=== PATIENT | female | born 1970 | race Caucasian/White ===

== ENCOUNTER 2017-08-31 07:12 | Emergency (ER) | payer MEDICAID ==
[~2017-08-31] VITALS: Ht 162.6 cm; Wt 74.0 kg
[2017-08-31 07:14] VITALS: BP 152/95
[2017-08-31] MEDS ORDERED: ESCI5TAB7 PO (07:45)
== END 2017-08-31 09:21 | disposition home or self-care (01) ==
LOC: ED 08:04
DX: S40.011A Contusion of right shoulder, initial encounter (principal); S40.021A Contusion of right upper arm, initial encounter; I10 Essential (primary) hypertension; E11.9 Type 2 diabetes mellitus without complications; W11.XXXA Fall on and from ladder, initial encounter; Y93.89 Activity, other specified; Y92.098 Other place in other non-institutional residence as the place of occurrence of the external cause; Y99.8 Other external cause status
CPT/HCPCS: 99284

== ENCOUNTER 2017-10-04 09:15 | Emergency (ER) | payer MEDICAID ==
[~2017-10-04] VITALS: Ht 162.6 cm; Wt 74.8 kg
[~2017-10-04 09:15] MED LIST: ESCI5TAB7 PO
[2017-10-04 09:18] VITALS: BP 162/104
[2017-10-04] MEDS ORDERED: BACITRACIN ZINC OINT 500U/GM, 0.9 GM ONE (10:15)
== END 2017-10-04 10:30 | disposition home or self-care (01) ==
LOC: ED 10:15
DX: L03.115 Cellulitis of right lower limb (principal); I10 Essential (primary) hypertension; E11.9 Type 2 diabetes mellitus without complications
CPT/HCPCS: 99283

== ENCOUNTER 2017-10-24 19:31 | Emergency (ER) | payer MEDICAID ==
[~2017-10-24] VITALS: Ht 160 cm; Wt 70.0 kg
[2017-10-24 20:41] LABS: HCG UR SG 1.039 (1.003-1.030); MICROSCOPIC NOT IND
[2017-10-24 20:54] LABS: CULTURE INDICATED? NO
[2017-10-24] MEDS ORDERED: SODIUM CHLORIDE 0.9% 1,000ML IVBOLUS ONE (21:00)
[2017-10-24 21:07] LABS: BASOPHILS % (AUTO) 1 % (0-1); EOSINOPHILS # (AUTO) 0.31 x10^3/uL (0-0.4); EOSINOPHILS % (AUTO) 2 % (1-7); LYMPHOCYTES # (AUTO) 4.74 x10^3/uL (1-3.4); LYMPHOCYTES % (AUTO) 30 % (22-44); MD NO; MEAN CORPUSCULAR HEMOGLOBIN 30.3 pg (27.0-34.8); MEAN CORPUSCULAR HGB CONC 33.8 g/dL (32.4-35.8); MEAN CORPUSCULAR VOLUME 89.5 fL (80-100); MEAN PLATELET VOLUME 9.2 fL (7.4-10.4); MONOCYTES # (AUTO) 0.75 x10^3/uL (0.2-0.8); MONOCYTES % (AUTO) 5 % (2-9); NEUTROPHILS # (AUTO) 10.17 x10^3/uL (1.8-6.8); NEUTROPHILS % (AUTO) 63 % (42-75); PLATELET COUNT 305 x10^3/uL (130-400); RED BLOOD COUNT 5.07 x10^6/uL (3.82-5.3); RED CELL DISTRIBUTION WIDTH 13.9 % (9.6-15.2)
[2017-10-24 21:09] LABS: CLUE CELLS NONE SEEN (NONE SEEN)
[2017-10-24 21:10] LABS: WET PREP WBCS FEW (FEW)
[2017-10-24 21:15] LABS: ANION GAP 8 mmol/L (5-15); CALCIUM 8.9 mg/dL (8.5-10.1); CHLORIDE 103 mmol/L (98-107); CREATININE 0.69 mg/dL (0.55-1.02)
[2017-10-24 21:34] LABS: ACETONE, SERUM Negative (Negative)
[2017-10-24] MEDS ORDERED: AZITHROMYCIN 500 MG TABLET ONE (21:47)
[2017-10-24] MEDS ORDERED: CEFTRIAXONE PMX 1GM/50ML 50 ML ONE (21:47)
[2017-10-24] MEDS ORDERED: CEFTRIAXONE PMX 1GM/50ML 50 ML IV ONE (22:00)
[2017-10-24] MEDS ORDERED: AZITHROMYCIN 500 MG TABLET PO SCH (22:00)
[2017-10-24 22:07] VITALS: BP 138/78
== END 2017-10-24 22:14 | disposition home or self-care (01) ==
LOC: ED 20:47
DX: N76.1 Subacute and chronic vaginitis (principal); E11.65 Type 2 diabetes mellitus with hyperglycemia; F17.200 Nicotine dependence, unspecified, uncomplicated
CPT/HCPCS: 36415; 80048; 81003; 81025; 82010; 82800; 82962; 85025; 87210; 87491; 87591; 87808; 96361; 96365; 99284; J0696; J7030

== ENCOUNTER 2017-12-29 20:15 | Observation (INO) | payer MEDICAID ==
[~2017-12-29] VITALS: Ht 157.5 cm; Wt 75.0 kg
[2017-12-29 20:56] LABS: HCG UR SG 1.008 (1.003-1.030)
[2017-12-29 20:59] LABS: BASOPHILS % (AUTO) 1 % (0-1); EOSINOPHILS % (AUTO) 1 % (1-7); LYMPHOCYTES % (AUTO) 30 % (22-44); MD NO; MEAN CORPUSCULAR HEMOGLOBIN 30.2 pg (27.0-34.8); MEAN CORPUSCULAR HGB CONC 33.9 g/dL (32.4-35.8); MEAN CORPUSCULAR VOLUME 89.1 fL (80-100); MEAN PLATELET VOLUME 9.1 fL (7.4-10.4); MONOCYTES # (AUTO) 0.74 x10^3/uL (0.2-0.8); MONOCYTES % (AUTO) 5 % (2-9); NEUTROPHILS # (AUTO) 9.62 x10^3/uL (1.8-6.8); NEUTROPHILS % (AUTO) 63 % (42-75); PLATELET COUNT 311 x10^3/uL (130-400); RED BLOOD COUNT 4.66 x10^6/uL (3.82-5.3); RED CELL DISTRIBUTION WIDTH 14.7 % (9.6-15.2)
[2017-12-29] MEDS ORDERED: INSU100V8 SQ (21:05)
[2017-12-29 21:07] LABS: ALANINE AMINOTRANSFERASE 24 U/L (12-78); ANION GAP 9 mmol/L (5-15); CALCIUM 8.9 mg/dL (8.5-10.1); CHLORIDE 106 mmol/L (98-107); CREATININE 0.74 mg/dL (0.55-1.02)
[2017-12-29 21:09] LABS: ACETAMINOPHEN < 2 mcg/mL (10-30); ALKALINE PHOSPHATASE 93 U/L (45-117); BILIRUBIN,TOTAL 0.5 mg/dL (0.2-1.0); TOTAL PROTEIN 8.4 g/dL (6.4-8.2)
[2017-12-29 21:19] LABS: AMPHETAMINE SCREEN, URINE Negative (Negative); BARBITURATE SCREEN, URINE Negative (Negative); BENZODIAZEPINE SCREEN, URINE Negative (Negative); CANNABINOID SCREEN, URINE Positive (Negative); COCAINE SCREEN, URINE Negative (Negative); METHADONE SCREEN, URINE Negative (Negative); OPIATE SCREEN, URINE Negative (Negative)
[2017-12-29 22:24] LABS: MICROSCOPIC NOT IND
[2017-12-29 22:26] LABS: CULTURE INDICATED? NO
[2017-12-29] MEDS ORDERED: ONDANSETRON ODT 4 MG PO PRN (23:30)
[2017-12-29] MEDS: INSULIN GLARGINE 100 UNITS/ML, PEN SQ-INSULIN SCH (23:30)
[2017-12-30] MEDS ORDERED: ACETAMINOPHEN 325 MG TABLET ONE ×3 (04:35→07:59)
[2017-12-30] MEDS: ACETAMINOPHEN 325 MG TABLET PO PRN ×2 (04:41→08:08)
[2017-12-30 04:43] LABS: MEAN CORPUSCULAR HEMOGLOBIN 29.8 pg (27.0-34.8); MEAN CORPUSCULAR HGB CONC 33.1 g/dL (32.4-35.8); MEAN CORPUSCULAR VOLUME 90.2 fL (80-100); MEAN PLATELET VOLUME 8.8 fL (7.4-10.4); PLATELET COUNT 310 x10^3/uL (130-400); RED BLOOD COUNT 4.52 x10^6/uL (3.82-5.3)
[2017-12-30 05:38] LABS: BASOPHILS # (AUTO) 0.11 x10^3/uL (0-0.1); BASOPHILS % (AUTO) 1 % (0-1); EOSINOPHILS # (AUTO) 0.24 x10^3/uL (0-0.4); EOSINOPHILS % (AUTO) 2 % (1-7); LYMPHOCYTES # (AUTO) 5.89 x10^3/uL (1-3.4); LYMPHOCYTES % (AUTO) 38 % (22-44); MD SCAN; MONOCYTES # (AUTO) 0.74 x10^3/uL (0.2-0.8); MONOCYTES % (AUTO) 5 % (2-9); NEUTROPHILS # (AUTO) 8.63 x10^3/uL (1.8-6.8); NEUTROPHILS % (AUTO) 55 % (42-75)
[2017-12-30] MEDS ORDERED: INSULIN REGULAR 100 UNITS/ML, 3ML VIAL ONE ×3 (08:00→20:23)
[2017-12-30] MEDS: INSULIN REGULAR 100 UNITS/ML, 3ML VIAL SQ-INSULIN SCH ×4 (08:07→21:00)
[2017-12-30] MEDS ORDERED: TEMPLATE NON-FORMULARY MED. (Escitalopram Oxalate** (Lexapro**) 5 MG) PO SCH (09:00)
[2017-12-30] MEDS: DULOXETINE 20 MG CAPSULE.DR PO SCH (10:33)
[2017-12-30] MEDS ORDERED: DULO20CA45 PO (12:46)
[2017-12-30] MEDS ORDERED: LORazepam 1MG TABLET ONE ×2 (16:13→20:23)
[2017-12-30] MEDS: LORazepam 1MG TABLET PO PRN (16:14)
[2017-12-30] MEDS: INSULIN GLARGINE 100 UNITS/ML, PEN SQ-INSULIN SCH (21:30)
[2017-12-31] MEDS ORDERED: LORazepam 1MG TABLET ONE ×2 (03:00→11:50)
[2017-12-31] MEDS: LORazepam 1MG TABLET PO PRN ×3 (03:01→21:53)
[2017-12-31] MEDS: INSULIN REGULAR 100 UNITS/ML, 3ML VIAL SQ-INSULIN SCH ×4 (07:00→20:30)
[2017-12-31] MEDS ORDERED: INSULIN REGULAR 100 UNITS/ML, 3ML VIAL ONE ×2 (08:13→11:22)
[2017-12-31] MEDS: DULOXETINE 20 MG CAPSULE.DR PO SCH (08:14)
[2017-12-31] MEDS ORDERED: GABA300C10 PO (12:09)
[2017-12-31] MEDS ORDERED: METF10003 PO (12:09)
[2017-12-31] MEDS ORDERED: AMLO5TAB2 PO (12:10)
[2017-12-31] MEDS ORDERED: INSU100V8 SQ (12:11)
[2017-12-31 13:55] LABS: BASOPHILS # (AUTO) 0.03 x10^3/uL (0-0.1); BASOPHILS % (AUTO) 0 % (0-1); EOSINOPHILS % (AUTO) 2 % (1-7); LYMPHOCYTES # (AUTO) 3.85 x10^3/uL (1-3.4); LYMPHOCYTES % (AUTO) 27 % (22-44); MD NO; MEAN CORPUSCULAR HEMOGLOBIN 29.7 pg (27.0-34.8); MEAN CORPUSCULAR HGB CONC 33.2 g/dL (32.4-35.8); MEAN CORPUSCULAR VOLUME 89.6 fL (80-100); MONOCYTES # (AUTO) 0.69 x10^3/uL (0.2-0.8); MONOCYTES % (AUTO) 5 % (2-9); NEUTROPHILS # (AUTO) 9.68 x10^3/uL (1.8-6.8); NEUTROPHILS % (AUTO) 67 % (42-75); PLATELET COUNT 315 x10^3/uL (130-400); RED BLOOD COUNT 4.58 x10^6/uL (3.82-5.3); RED CELL DISTRIBUTION WIDTH 14.6 % (9.6-15.2)
[2017-12-31 15:12] VITALS: BP 142/98
[2017-12-31] MEDS: GABAPENTIN 300 MG CAPSULE PO SCH ×2 (16:00→20:30)
[2017-12-31 16:12] VITALS: BP 142/98
[2017-12-31 19:19] VITALS: BP 138/87
[2017-12-31] MEDS: INSULIN GLARGINE 100 UNITS/ML, PEN SQ-INSULIN SCH (20:30)
[2017-12-31] MEDS: metFORMIN 500 MG TABLET PO SCH (20:30)
[2018-01-01] MEDS: INSULIN REGULAR 100 UNITS/ML, 3ML VIAL SQ-INSULIN SCH ×4 (07:34→20:13)
[2018-01-01 07:48] VITALS: BP 135/94
[2018-01-01] MEDS: GABAPENTIN 300 MG CAPSULE PO SCH ×3 (08:43→20:19)
[2018-01-01] MEDS: DULOXETINE 20 MG CAPSULE.DR PO SCH (08:44)
[2018-01-01] MEDS: metFORMIN 500 MG TABLET PO SCH ×2 (08:44→20:19)
[2018-01-01] MEDS: AMLODIPINE 5 MG TABLET PO SCH (08:44)
[2018-01-01] MEDS ORDERED: DULOXETINE 20 MG CAPSULE.DR PO SCH (09:00)
[2018-01-01] MEDS: ACETAMINOPHEN 325 MG TABLET PO PRN (13:52)
[2018-01-01 19:55] VITALS: BP 139/90
[2018-01-01] MEDS: INSULIN GLARGINE 100 UNITS/ML, PEN SQ-INSULIN SCH (20:14)
[2018-01-01] MEDS: LORazepam 1MG TABLET PO PRN (20:42)
[2018-01-01] MEDS ORDERED: DIPHENHYDRAMINE 50 MG CAPSULE ONE (21:10)
[2018-01-01] MEDS ORDERED: DIPHENHYDRAMINE 50 MG CAPSULE PO PRN (21:30)
[2018-01-02] MEDS: INSULIN REGULAR 100 UNITS/ML, 3ML VIAL SQ-INSULIN SCH ×2 (07:40→11:00)
[2018-01-02 08:28] VITALS: BP 123/78
[2018-01-02] MEDS: DULOXETINE 20 MG CAPSULE.DR PO SCH (09:02)
[2018-01-02] MEDS: GABAPENTIN 300 MG CAPSULE PO SCH (09:02)
[2018-01-02] MEDS: AMLODIPINE 5 MG TABLET PO SCH (09:03)
[2018-01-02] MEDS: metFORMIN 500 MG TABLET PO SCH (09:03)
[2018-01-02] MEDS: ACETAMINOPHEN 325 MG TABLET PO PRN (14:54)
[2018-01-02] MEDS: LORazepam 1MG TABLET PO PRN (14:54)
== END 2018-01-02 15:41 | disposition home or self-care (01) ==
LOC: ED 21:05 → EDIP 22:29 → 2N 12-31 14:45
PROVIDERS: ADMIT Hospitalist; ATTEND Hospitalist
DX: R45.851 Suicidal ideations (principal); I11.9 Hypertensive heart disease without heart failure; F32.9 Major depressive disorder, single episode, unspecified; F41.9 Anxiety disorder, unspecified; D72.829 Elevated white blood cell count, unspecified; E11.65 Type 2 diabetes mellitus with hyperglycemia; F12.90 Cannabis use, unspecified, uncomplicated; F17.200 Nicotine dependence, unspecified, uncomplicated; Z59.0 Homelessness
CPT/HCPCS: 36415; 71045; 80053; 80307; 80329; 81003; 81025; 82962; 85025; 96372; 99285; G0378; J1815; G0480

== ENCOUNTER 2019-08-14 08:11 | Emergency (ER) | payer MEDICAID ==
[~2019-08-14] VITALS: Ht 162.6 cm; Wt 72.2 kg
[~2019-08-14 08:11] MED LIST changes: +AMLO-150 PO; +DULO20CA45 PO; +GABA300C10 PO; +INSU100V8 SQ; +METF10007 PO
[2019-08-14 08:22] VITALS: BP 148/91
--- NOTE | 2019-08-14 09:11 | NUR ---
Break RN: Pt returned from Xray in NAD, awaiting Xray read & strep swab result. Pt given blanket for comfort, no other needs at this time.
[2019-08-14] MEDS ORDERED: ACETAMINOPHEN 325 MG TABLET PO ONE (09:30)
[2019-08-14] MEDS ORDERED: ACETAMINOPHEN 325 MG TABLET ONE (09:30)
== END 2019-08-14 10:11 | disposition home or self-care (01) ==
LOC: ED 10:00
DX: J02.8 Acute pharyngitis due to other specified organisms (principal); B97.89 Other viral agents as the cause of diseases classified elsewhere; I10 Essential (primary) hypertension; E11.65 Type 2 diabetes mellitus with hyperglycemia
CPT/HCPCS: 71046; 87081; 87880; 99284

== ENCOUNTER 2019-11-04 12:31 | Emergency (ER) | payer MEDICAID ==
[~2019-11-04] VITALS: Ht 160 cm; Wt 86.4 kg
[2019-11-04] MEDS ORDERED: SODIUM CHLORIDE FLUSH 10ML SYR IVF ONE (13:00)
[2019-11-04] MEDS ORDERED: SODIUM CHLORIDE 0.9% 1,000ML IVBOLUS ONE (13:00)
[2019-11-04 13:10] LABS: BASOPHILS # (AUTO) 0.07 x10^3/uL (0-0.1); BASOPHILS % (AUTO) 1 % (0-1); EOSINOPHILS # (AUTO) 0.15 x10^3/uL (0-0.4); EOSINOPHILS % (AUTO) 1 % (1-7); LYMPHOCYTES # (AUTO) 4.28 x10^3/uL (1-3.4); LYMPHOCYTES % (AUTO) 29 % (22-44); MD NO; MEAN CORPUSCULAR HEMOGLOBIN 29.9 pg (27.0-34.8); MEAN CORPUSCULAR HGB CONC 33.2 g/dL (32.4-35.8); MEAN PLATELET VOLUME 8.9 fL (7.4-10.4); MONOCYTES # (AUTO) 0.64 x10^3/uL (0.2-0.8); MONOCYTES % (AUTO) 4 % (2-9); NEUTROPHILS % (AUTO) 66 % (42-75); PLATELET COUNT 334 x10^3/uL (130-400); RED BLOOD COUNT 4.95 x10^6/uL (3.82-5.3); RED CELL DISTRIBUTION WIDTH 14.6 % (9.6-15.2)
[2019-11-04 13:22] LABS: ALBUMIN 3.8 g/dL (3.4-5.0); ANION GAP 11 mmol/L (5-15); CALCIUM 8.8 mg/dL (8.5-10.1); CHLORIDE 107 mmol/L (98-107); CREATININE 0.87 mg/dL (0.55-1.02)
--- NOTE | 2019-11-04 13:49 | NUR ---
RAJEEV SCHULTE EVALUATING PT. SITTER OUTSIDE ROOM.
--- NOTE | 2019-11-04 15:22 | NUR ---
UOB TO BATHROOM WITHOUT ASSISTANCE. UPON RETURN TO ROOM IV ESTABLISHED WITH FLUIDS INFUSING
--- NOTE | 2019-11-04 16:32 | NUR ---
LYING IN BED QUIETLY, NO DISTRESS
--- NOTE | 2019-11-04 17:39 | NUR ---
RESTING QUIETLY. REMAINS IN VIEW OF SITTER.
--- NOTE | 2019-11-04 17:44 | NUR ---
RESTING WITH EYES CLOSED, NO DISTRESS
--- NOTE | 2019-11-04 18:53 | NUR ---
PACKET FAXED TO [facility] AND [facility]
--- NOTE | 2019-11-04 18:56 | NUR ---
REPORT TO ELVIE JEWELL
--- NOTE | 2019-11-04 19:00 | NUR ---
REPORT RECEIVED FROM FANTA CASAS. THIS RN TO ASSUME CARE OF PT AT THIS TIME
--- NOTE | 2019-11-04 19:10 | NUR ---
PATIENT MOVED TO 3 TO BE A SECURED ROOM. SITTER AT DOOR
--- NOTE | 2019-11-04 19:45 | NUR ---
CALL PLACED TO GET HOSPITAL BED
--- NOTE | 2019-11-04 20:08 | NUR ---
PATIENT MOVED TO HOSPITAL BED. ROOM SECURED, SITTER AT DOOR
--- NOTE | 2019-11-04 21:00 | NUR ---
PATIENT SLEEPING, RESPIRATIONS EVEN AND UNLABORED. SITTER AT DOOR, ROOM SECURE
--- NOTE | 2019-11-04 22:06 | NUR ---
PATIENT SLEEPING, RESPIRATIONS EVEN AND UNLABORED. SITTER AT DOOR, ROOM SECURE
--- NOTE | 2019-11-04 22:58 | NUR ---
PATIENT SLEEPING, RESPIRATIONS EVEN AND UNLABORED. SITTER AT DOOR, ROOM SECURE
--- NOTE | 2019-11-05 | NUR ---
PATIENT SLEEPING, RESPIRATIONS EVEN AND UNLABORED. SITTER AT DOOR, ROOM SECURE
--- NOTE | 2019-11-05 00:59 | NUR ---
Report from Ladonna arredondo. Pt sleeping. Even and unlabored breathing observed. sitter in view of pt
--- NOTE | 2019-11-05 01:21 | NUR ---
REPORT GIVEN TO FANTA FUENTES. PLAN OF CARE DISCUSSED. SITTER AT DOOR. ROOM SECURE
--- NOTE | 2019-11-05 02:15 | NUR ---
UA COLLECTED AND SENT
[2019-11-05 02:36] LABS: AMPHETAMINE SCREEN, URINE Negative (Negative); BARBITURATE SCREEN, URINE Negative (Negative); BENZODIAZEPINE SCREEN, URINE Negative (Negative); CANNABINOID SCREEN, URINE Positive (Negative); COCAINE SCREEN, URINE Negative (Negative); METHADONE SCREEN, URINE Negative (Negative); OPIATE SCREEN, URINE Negative (Negative)
--- NOTE | 2019-11-05 03:31 | NUR ---
PT SLEEPING IN NAD. EVEN RISE AND FALL OF CHEST OBSERVED. SITTER IN VIEW OF PT.
--- NOTE | 2019-11-05 04:45 | NUR ---
PT SLEEPING IN NAD. EVEN RISE AND FALL OF CHEST OBSERVED. SITTER IN VIEW OF PT.
--- NOTE | 2019-11-05 05:27 | NUR ---
PT SLEEPING IN NAD. EVEN RISE AND FALL OF CHEST OBSERVED. SITTER IN VIEW OF PT.
--- NOTE | 2019-11-05 08:30 | NUR ---
MEAL TRAY GIVEN, NO NEEDS A THIS TIME.
--- NOTE | 2019-11-05 09:30 | NUR ---
PT RESTING. SITTER PRESENT.
--- NOTE | 2019-11-05 10:30 | NUR ---
PT RESTING, NO NEEDS AT THIS TIME. SITTER PRESENT
--- NOTE | 2019-11-05 11:29 | NUR ---
GIVEN WATER. PT RESTING, NO NEEDS AT THIS TIME
--- NOTE | 2019-11-05 12:12 | NUR ---
MEAL TRAY ORDERED.
[2019-11-05] MEDS ORDERED: NICOTINE 21 MG/24 HR PATCH.TD24 ONE (13:22)
[2019-11-05] MEDS: BUPROPION SR 100 MG TABLET PO SCH (13:30)
[2019-11-05] MEDS: NICOTINE 21 MG/24 HR PATCH.TD24 TD SCH (13:30)
--- NOTE | 2019-11-05 13:30 | NUR ---
PT RESTING. COMPLETED MEAL TRAY. SITTER PRESENT.
--- NOTE | 2019-11-05 14:10 | NUR ---
PT SHOWERING, NEW LINENS PROVIDED. EDY ISAACS
--- NOTE | 2019-11-05 15:24 | NUR ---
PT RESTING, WATCHING TV. SITTER PRESENT
--- NOTE | 2019-11-05 16:30 | NUR ---
PT RESTING, NO NEEDS AT THIS TIME
--- NOTE | 2019-11-05 17:30 | NUR ---
PT RESTING NO NEEDS AT THIS TIME. SITTER PRESENT
--- NOTE | 2019-11-05 18:22 | NUR ---
MEAL TRAY GIVEN, SITTER PRESENT
--- NOTE | 2019-11-05 19:16 | NUR ---
PT RESTING ON HOSITAL BED. DINNER MEAL PROVIDED. WATER PROVIDED. SITTER IN HALLWAY WITHIN LINE OF SIGHT. ROOM SECURED. ALL SAFETY MEASURES IN PLACE. PT REPORTS THOUGHTS OF SUICIDE, BUT DENIES CURRENT INTENTION TO ACT ON THEM. PT REPORTS "I WAS DRUNK SO I WAS SUICIDAL" "BRONWYN TRIED TO KILL MYSELF BEFORE BY CUTTING". PT DENIES ANY OTHER NEEDS AT THIS TIME.
--- NOTE | 2019-11-05 21:44 | NUR ---
PT RESTING ON HOSPITAL BED WATCHING TV. PT DENIES FURTHER NEEDS AT THIS TIME. ROOM SECURED, SITTER IN HALLWAY WITHIN LINE OF SIGHT.
[2019-11-05] MEDS: TRAZODONE 100MG TABLET PO SCH (22:10)
[2019-11-05] MEDS ORDERED: TRAZODONE 100MG TABLET ONE (22:17)
--- NOTE | 2019-11-05 22:41 | NUR ---
PT RESTING ON HOSPITAL BED WATCHING TELEVISION. ROOM SECURED, SITTER IN HALLWAY WITHIN LINE OF SIGHT.
--- NOTE | 2019-11-06 02:15 | NUR ---
PT RESTING ON HOSPITAL BED WITH EYES CLOSED, RESPIRATIONS EVEN AND NONLABORED. ROOM SECURED, SITTER IN HALLWAY WITHIN LINE OF SIGHT.
--- NOTE | 2019-11-06 04:32 | NUR ---
PT RESTING ON HOSPITAL BED WITH EYES CLOSED, RESPIRATIONS EVEN AND NONLABORED. ROOM SECURED, SITTER IN HALLWAY WITHIN LINE OF SIGHT.
--- NOTE | 2019-11-06 04:50 | NUR ---
REPORT TO JOSHUA Perez RN
--- NOTE | 2019-11-06 05:27 | NUR ---
PT RESTING ON BED AJITHN. SITTER IN [facility]
--- NOTE | 2019-11-06 06:49 | NUR ---
REPORT FROM FANTA LEWIS. ASSUMING CARE AT THIS TIME.
[2019-11-06] MEDS ORDERED: NICOTINE 21 MG/24 HR PATCH.TD24 ONE (07:24)
[2019-11-06] MEDS: NICOTINE 21 MG/24 HR PATCH.TD24 TD SCH (07:29)
--- NOTE | 2019-11-06 07:31 | NUR ---
OLD NICOTINE PATCH REMOVED AND NEW PATCH APPLIED, REQUEST SENT TO PHARMACY FOR WELLBUTRIN. MED REC COMPLETED.
--- NOTE | 2019-11-06 07:32 | NUR ---
PT RESTING IN SECURED ROOM, AWAKE AND CALM, SITTER AT DOORWAY. VS, PHYSICAL EXAM AND SUICIDE REASSESSMENT COMPLETED AND 3Ps ADDRESSED. BREAKFAST TRAY ORDERED. NO NEEDS EXPRESSED AT THIS TIME. PT MEDICATED PER SEP. REQUEST SENT TO PHARM FOR OTHER MEDICATIONS. NO IV IN PLACE AT THIS TIME.
--- NOTE | 2019-11-06 08:10 | NUR ---
PT RESTING IN SECURED ROOM WITH EYES CLOSED. BREAKFAST TRAY DELIVERED. NO NEEDS EXPRESSED. SITTER REMAINS AT DOORWAY. STILL AWAITING MEDICATION FROM PHARMACY.
[2019-11-06] MEDS: BUPROPION SR 100 MG TABLET PO SCH ×2 (08:44→12:24)
--- NOTE | 2019-11-06 08:45 | NUR ---
LATE ENTRY: MEDICATION FROM PHARMACY AT THIS TIME. PT MEDICATED PER SEP.
--- NOTE | 2019-11-06 09:22 | NUR ---
PT RESTING IN SECURED ROOM WITH EYES CLOSED. NO NEEDS EXPRESSED. SITTER REMAINS AT DOORWAY.
--- NOTE | 2019-11-06 11:45 | NUR ---
PT RESTING IN SECURED ROOM WITH EYES CLOSED. NO NEEDS EXPRESSED. LUNCH TRAY ORDERED. SITTER REMAINS AT DOORWAY. YELLOW SLIP SENT TO PHARMACY TO REQUEST MEDICATIONS.
--- NOTE | 2019-11-06 12:23 | NUR ---
PT RESTING IN SECURED ROOM WATCHING TV. NO NEEDS EXPRESSED. LUNCH TRAY PROVIDED. SITTER REMAINS AT DOORWAY.
--- NOTE | 2019-11-06 12:25 | NUR ---
MEDICATION RECEIVED FROM PHARMACY. PT MEDICATED PER SEP. PER PALLIATIVE NURSE, MED ORDER IS CORRECT. BID AT BREAKFAST AND LUNCH TIME.
--- NOTE | 2019-11-06 12:56 | NUR ---
RECEIVED REPORT FROM ISA JEWELL. PT IN BED WATCHING TV. PT BEING OBSERVED BY SITTER. PT ATE 50% OF LUNCH.
--- NOTE | 2019-11-06 13:57 | NUR ---
THROUGHTPUT: RECEIVED A CALL FROM [facility], NEED HCG. FAXED HCG RESULTS NEGATIVE TO [facility] RECEIVED FAX CONFIRMATION
--- NOTE | 2019-11-06 15:29 | NUR ---
PT RESTING IN BED IN NAD. VISBLE RISE AND FALL OF CHEST OBSERVED. PT BEING OBSERVED BY SITTER.
--- NOTE | 2019-11-06 15:55 | NUR ---
pt has hx of dm and not on meds for one year. initial bs was 330 on arrival. Poc glucose revealed bs of 153. dr. law jamil.
--- NOTE | 2019-11-06 17:15 | NUR ---
PT GIVEN MEAL TRAY. PT BEING OBSERVED BY SITTER.
--- NOTE | 2019-11-06 19:00 | NUR ---
PT WATCHING TV IN NAD. PT CALM AND COOPERATIVE. PT BEING OBSERVED BY SITTER.
--- NOTE | 2019-11-06 20:27 | NUR ---
PT GIVEN WATER PER PT REQUEST. PT CALM AND COOPERATIVE. PT BEING OBSERVED BY SITTER.
--- NOTE | 2019-11-06 22:00 | NUR ---
REPORT TO ROBIN JEWELL.
--- NOTE | 2019-11-06 22:00 | NUR ---
Report from FANTA Sullivan. This RN to assume care. Patient resting in [facility] asking for nighttime meds. Medicated patient per sep.
[2019-11-06] MEDS: TRAZODONE 100MG TABLET PO SCH (22:05)
[2019-11-06] MEDS ORDERED: TRAZODONE 100MG TABLET ONE (22:09)
--- NOTE | 2019-11-06 23:25 | NUR ---
Patient sleeping in rney. Respirations even and unlabored. Sitter outside, room secured, belongings in locked cabinet.
--- NOTE | 2019-11-07 00:34 | NUR ---
Patient sleeping in rney. Respirations even and unlabored. Sitter outside, room secured, belongings in locked cabinet.
--- NOTE | 2019-11-07 02:00 | NUR ---
Patient sleeping in rney. Respirations even and unlabored. Sitter outside, room secured, belongings in locked cabinet.
--- NOTE | 2019-11-07 03:43 | NUR ---
Patient sleeping in rney. Respirations even and unlabored. Sitter outside, room secured, belongings in locked cabinet.
--- NOTE | 2019-11-07 04:36 | NUR ---
Patient sleeping in rney. Respirations even and unlabored. Sitter outside, room secured, belongings in locked cabinet.
[2019-11-07 05:37] VITALS: BP 93/51
--- NOTE | 2019-11-07 05:37 | NUR ---
Awoke patient for vitals and questioning. Patient still sleepy; denies any complaints.
--- NOTE | 2019-11-07 06:50 | NUR ---
Report given to FANTA Boogie.
[2019-11-07] MEDS ORDERED: BUPROPION SR 100 MG TABLET PO SCH (08:00)
--- NOTE | 2019-11-07 09:04 | NUR ---
PT GIVEN MEAL TRAY. MED SLIP SENT TO PHARM REQUESTING AM MEDS. SI REASSESSMENT COMPLETED. SI PRECAUTIONS REMAIN IN PLACE
[2019-11-07] MEDS ORDERED: NICOTINE 21 MG/24 HR PATCH.TD24 ONE (10:21)
[2019-11-07] MEDS: NICOTINE 21 MG/24 HR PATCH.TD24 TD SCH (10:25)
--- NOTE | 2019-11-07 10:27 | NUR ---
PT MEDICATED PER MAR, DENIES NEEDS AT THIS TIME
--- NOTE | 2019-11-07 11:45 | NUR ---
PT PROVIDED WITH COFFEE PER REQUEST. DIET TRAY ORDERED.
--- NOTE | 2019-11-07 12:24 | NUR ---
LUNCH RN: PT WALKED TO RESTROOM, NO ASSISTNACE NEEDED. PT HAS NO NEEDS. SUICIDE PRECAUTIONS REMAIN, SITTER OUTSDIE ROOM FOR CONTINOUS MONITORING.
--- NOTE | 2019-11-07 14:06 | NUR ---
SPOKE WITH SW, STILL AWAITING PHARMACY SLIP FOR PT MEDICATIONS THEN TO DC PATIENT
--- NOTE | 2019-11-07 14:21 | NUR ---
ALL BELONGINGS RETURNED TO PT AT THIS TIME
== END 2019-11-07 14:59 | disposition home or self-care (01) ==
LOC: ED 13:13
DX: G31.2 Degeneration of nervous system due to alcohol (principal); R45.851 Suicidal ideations; F32.9 Major depressive disorder, single episode, unspecified; I10 Essential (primary) hypertension; E11.9 Type 2 diabetes mellitus without complications
CPT/HCPCS: 36415; 80048; 80307; 82040; 82962; 84703; 85025; 99285; J7030

== ENCOUNTER 2019-11-08 16:45 | Emergency (ER) | payer MEDICAID ==
[~2019-11-08] VITALS: Ht 162.6 cm; Wt 67.0 kg
--- NOTE | 2019-11-08 17:00 | NUR ---
PT BIB [facility] FOR SI. HAS A PLAN TO JUMP IN FRONT OF TRAFFIC, OR JUMP [place], OR HANG HERSELF. PT DENIES DRUGS AND ETOH. PT HAS HISTORY OF BIPOLAR DEPRESSION. PT SAYS MEDS DONT WORK. PT WAS DCd YESTERDAY FROM [facility] AT [facility]. IS BEDSIDE FOR ASSESSMENT. UA SENT. PT BELONGINGS BAGGED AND PLACED IN LOCKER 2 WHITE PT BAGS 1 RED BACK PACK
[2019-11-08 17:28] LABS: BASOPHILS # (AUTO) 0.08 x10^3/uL (0-0.1); BASOPHILS % (AUTO) 1 % (0-1); EOSINOPHILS # (AUTO) 0.51 x10^3/uL (0-0.4); EOSINOPHILS % (AUTO) 4 % (1-7); LYMPHOCYTES # (AUTO) 3.69 x10^3/uL (1-3.4); LYMPHOCYTES % (AUTO) 27 % (22-44); MD NO; MEAN CORPUSCULAR HEMOGLOBIN 29.7 pg (27.0-34.8); MEAN CORPUSCULAR HGB CONC 33.1 g/dL (32.4-35.8); MEAN CORPUSCULAR VOLUME 89.9 fL (80-100); MEAN PLATELET VOLUME 9.5 fL (7.4-10.4); MONOCYTES # (AUTO) 0.69 x10^3/uL (0.2-0.8); MONOCYTES % (AUTO) 5 % (2-9); NEUTROPHILS # (AUTO) 8.73 x10^3/uL (1.8-6.8); NEUTROPHILS % (AUTO) 64 % (42-75); PLATELET COUNT 298 x10^3/uL (130-400); RED BLOOD COUNT 4.76 x10^6/uL (3.82-5.3); RED CELL DISTRIBUTION WIDTH 14.8 % (9.6-15.2)
--- NOTE | 2019-11-08 17:28 | NUR ---
PT TO BE PLACED ON LEGAL HOLD. PT IS IN SUICIDE SECRUED ROOM WITH DOORS SHUT. THERE IS A SITTEROUTSIDE OF ROOM FOR PT SAFETY. BLANKET PROVIDED. DINNER ORDERED
[2019-11-08 17:32] LABS: MICROSCOPIC NOT IND
[2019-11-08 17:36] LABS: CULTURE INDICATED? NO
[2019-11-08 17:37] LABS: ALBUMIN 3.8 g/dL (3.4-5.0); ANION GAP 8 mmol/L (5-15); CALCIUM 8.8 mg/dL (8.5-10.1); CHLORIDE 102 mmol/L (98-107); SALICYLATE LEVEL 3.1 mg/dL (2.8-20.0)
[2019-11-08 17:40] LABS: AMPHETAMINE SCREEN, URINE Negative (Negative); BARBITURATE SCREEN, URINE Negative (Negative); BENZODIAZEPINE SCREEN, URINE Negative (Negative); CANNABINOID SCREEN, URINE Negative (Negative); COCAINE SCREEN, URINE Negative (Negative); METHADONE SCREEN, URINE Negative (Negative); OPIATE SCREEN, URINE Negative (Negative)
[2019-11-08 17:48] LABS: ALANINE AMINOTRANSFERASE 36 U/L (12-78); ALKALINE PHOSPHATASE 93 U/L (45-117); BILIRUBIN,TOTAL 0.5 mg/dL (0.2-1.0); CREATININE 0.74 mg/dL (0.55-1.02); TOTAL PROTEIN 7.8 g/dL (6.4-8.2)
--- NOTE | 2019-11-08 19:10 | NUR ---
PT STATES SHE HASN'T BEEN TAKING ANY MEDS FOR HER HTN OR DM FOR SEVERAL MONTHS. STATES, "I PROBABLY SHOULD BE TAKING SOMETHING". STATES SHE WAS PRECRIBED WELLBUTRIN RECENTLY.
--- NOTE | 2019-11-08 19:39 | NUR ---
Throughput RN: [facility] sup informed of patient potential admit.
--- NOTE | 2019-11-08 19:58 | NUR ---
THROUGHPUT RN: [facility] REFUSED PATIENT.
--- NOTE | 2019-11-08 20:03 | NUR ---
THROUGHPUT RN: PSYCH PACKET FAXED WITH; SUMMARY, MHC FORM, FACE SHEET, AND CHART TO [facility], [facility], [facility].
--- NOTE | 2019-11-08 22:09 | NUR ---
THROUGHPUT RN: [facility] REFUSED PATIENT DUE TO INSURANCE.
--- NOTE | 2019-11-08 22:17 | NUR ---
PT HAS BEEN RESTING IN GURNEY, NO S/S OF DISTRESS. AWAKENS EASILY. DENIES NEEDS AT THIS TIME.
--- NOTE | 2019-11-08 23:42 | NUR ---
PT RESTING IN [facility] AT THIS TIME; JANNA. SITTER OUTSIDE OF PT ROOM FOR DIRECT OBSERVATION OF PT.
--- NOTE | 2019-11-09 00:40 | NUR ---
pt asleep in [facility] at this time; nadn. sitter outside of pt room for direct observation of pt. equal bilateral rise and fall of chest noted.
--- NOTE | 2019-11-09 01:50 | NUR ---
PT ASLEEP IN [facility] AT THIS TIME; JANNA. PT HAS SITTER OUTSIDE OF PT ROOM FOR DIRECT OBSERVATION OF PT. EQUAL BILATERAL RISE AND FALL OF CHEST NOTED WHILE PT SLEEPS.
--- NOTE | 2019-11-09 03:17 | NUR ---
pt asleep in [facility] at this time; nadn. pt has sitter outside of pt room for direct observation of pt.equal bilateral rise and fall of pt chest noted.
--- NOTE | 2019-11-09 04:57 | NUR ---
pt asleep in [facility] at this time; nadn. sitter outside of pt room for direct observation of pt. equal bilateral rise and fall of chest noted.
[2019-11-09 06:38] VITALS: BP 109/70
--- NOTE | 2019-11-09 06:43 | NUR ---
pt awake. vss. pt breakfast tray ordered at this time. pt reports feeling the same as when she came in mentally and still feeling suicidal per pt. sitter outside of room at this time for direct observation of pt.
--- NOTE | 2019-11-09 07:45 | NUR ---
SHIFT REPORT RECEIVED. PT RESTING IN BED, NO DISTRESS. ROOM REMAINS SECURED, SITTER AT BEDSIDE. WHEN QUESTIONED ABOUT HER MEDICAL HX, PT DOES STATE HX OF DM, STATES NON COMPLIANT X2 YEARS WITH MEDICATION HOWEVER. ERMD AWARE, FSBS DONE, NO ACTION NEEDED PER ERMS DR. EDWARDS. PT STATES FEELING "UPSET" STILL TODAY, STATES SHE FEELS "MY LIFE IS NOT GOING WELL RIGHT NOW, I HAVE NO PLACE TO LIVE AND MY EXBOYFRIEND WONT EVEN TALK TO ME." MEAL TRAY ORDERED. CONT TO MONITOR.
--- NOTE | 2019-11-09 09:23 | NUR ---
PT RESTING IN BED, NO DISTRESS. SITTER REMAINS AT BEDISDE, ROOM REMAINS SECURED. AWAITING PSYCH TRANSFER. MEAL TRAY GIVEN TO PT. CONT TO MONITOR.
--- NOTE | 2019-11-09 10:16 | NUR ---
PT RESTING IN BED, NO DISTRESS. SITTER REMAINS AT BEDISDE, ROOM REMAINS SECURED. CONT TO MONITOR.
--- NOTE | 2019-11-09 11:27 | NUR ---
PT RESTING IN BED, NO DISTRESS. PT CALM AND COOPERATIVE. SPOKE WITH PT, PT STATES TAKES WELLBUTRIN DAILY, ALSO SPOKE WITH PARKER FROM [employer] ABOUT THE PT'S HOME MEDICATIONS. WILL LET ERMD KNOW, PT IS ON DAILY MEDICATIONS, WILL ATTEMPT TO OBTAIN ORDER. SITTER AT BEDSIDE, ROOM REMAINS SECURED. MEAL TRAY ORDERED. CONT TO MONITOR.
--- NOTE | 2019-11-09 12:26 | NUR ---
RAJEEV FINN NP AT PT'S BEDSIDE FOR ASSESSMENT. PT GIVEN MEAL TRAY, PT ON HOSPITAL BED WELL.
--- NOTE | 2019-11-09 13:19 | NUR ---
REPORT GIVEN TO RUPA JEWELL.
== END 2019-11-09 13:41 | disposition home or self-care (01) ==
LOC: ED 16:51
DX: F33.9 Major depressive disorder, recurrent, unspecified (principal); R45.851 Suicidal ideations; E03.9 Hypothyroidism, unspecified; Z72.9 Problem related to lifestyle, unspecified; E11.65 Type 2 diabetes mellitus with hyperglycemia; I10 Essential (primary) hypertension; F17.200 Nicotine dependence, unspecified, uncomplicated
CPT/HCPCS: 36415; 80053; 80307; 81003; 82962; 84443; 85025; 99284

== ENCOUNTER 2019-11-09 16:00 | Emergency (ER) | payer MEDICAID ==
[~2019-11-09] VITALS: Ht 162.6 cm; Wt 75.0 kg
--- NOTE | 2019-11-09 16:28 | NUR ---
PARKING METER ATTENDANT AT BEDSIDE TO EVALUATE AT THIS TIME.
--- NOTE | 2019-11-09 16:29 | NUR ---
PT AMB TO BR AND BACK TO ROOM WITH STEADY GAIT. UA SENT.
--- NOTE | 2019-11-09 16:29 | NUR ---
BIBA. REPORT RECEIVED FROM EMS. PT SEEN HERE AND DC TODAY. PT CALLED [employer] AND STATED "I WANNA KILL MY SELF" L2K BY [employer]. SI. DENIES HI. PT'S AOX4. RESPS EVEN AND UNLABORED. +ETOH. PA AT BEDSIDE TO EVALUATE.
--- NOTE | 2019-11-09 16:34 | NUR ---
PT'S BELONGINGS PUT INTO 2 BAGS WITH ONE PINK AND BLACK BACKPACK AND PUT INTO THE LOCKER.
[2019-11-09 16:48] LABS: MICROSCOPIC NOT IND
[2019-11-09 16:49] LABS: BASOPHILS # (AUTO) 0.06 x10^3/uL (0-0.1); BASOPHILS % (AUTO) 0 % (0-1); EOSINOPHILS # (AUTO) 0.37 x10^3/uL (0-0.4); EOSINOPHILS % (AUTO) 2 % (1-7); LYMPHOCYTES # (AUTO) 4.32 x10^3/uL (1-3.4); LYMPHOCYTES % (AUTO) 28 % (22-44); MD NO; MEAN CORPUSCULAR HEMOGLOBIN 29.6 pg (27.0-34.8); MEAN CORPUSCULAR HGB CONC 33.2 g/dL (32.4-35.8); MEAN CORPUSCULAR VOLUME 89.2 fL (80-100); MEAN PLATELET VOLUME 9.4 fL (7.4-10.4); MONOCYTES # (AUTO) 0.65 x10^3/uL (0.2-0.8); MONOCYTES % (AUTO) 4 % (2-9); NEUTROPHILS # (AUTO) 9.95 x10^3/uL (1.8-6.8); NEUTROPHILS % (AUTO) 65 % (42-75); PLATELET COUNT 319 x10^3/uL (130-400); RED CELL DISTRIBUTION WIDTH 15.1 % (9.6-15.2)
[2019-11-09 16:50] LABS: CULTURE INDICATED? NO
[2019-11-09 16:58] LABS: ALANINE AMINOTRANSFERASE 42 U/L (12-78); ALBUMIN 3.9 g/dL (3.4-5.0); ANION GAP 10 mmol/L (5-15); CHLORIDE 105 mmol/L (98-107); CREATININE 0.72 mg/dL (0.55-1.02)
[2019-11-09 17:00] LABS: ALKALINE PHOSPHATASE 93 U/L (45-117); BILIRUBIN,TOTAL 0.2 mg/dL (0.2-1.0); TOTAL PROTEIN 8.1 g/dL (6.4-8.2)
[2019-11-09 17:00] LABS: AMPHETAMINE SCREEN, URINE Negative (Negative); BARBITURATE SCREEN, URINE Negative (Negative); BENZODIAZEPINE SCREEN, URINE Negative (Negative); CANNABINOID SCREEN, URINE Negative (Negative); COCAINE SCREEN, URINE Negative (Negative); METHADONE SCREEN, URINE Negative (Negative); OPIATE SCREEN, URINE Negative (Negative)
--- NOTE | 2019-11-09 17:04 | NUR ---
PT AGITATED. SECURITY CALLED.
--- NOTE | 2019-11-09 17:25 | NUR ---
DIET TRAY ORDERED AT THIS TIME.
--- NOTE | 2019-11-09 17:55 | NUR ---
pt moved to room 3 by ani.
--- NOTE | 2019-11-09 17:57 | NUR ---
meal tray provided at this time.
--- NOTE | 2019-11-09 18:00 | NUR ---
hospital bed ordered at this time.
--- NOTE | 2019-11-09 18:26 | NUR ---
hospital bed placed. pt resting in hospital bed. pt's aox4. resps even and unlabored. underwear provided per request.
--- NOTE | 2019-11-09 19:03 | NUR ---
report given to karri arredondo.
[2019-11-09] MEDS ORDERED: TRAZODONE 50MG TABLET ONE (21:30)
[2019-11-09] MEDS: TRAZODONE 50MG TABLET PO PRN (21:49)
[2019-11-09] MEDS: BUPROPION SR 100 MG TABLET PO SCH (21:49)
--- NOTE | 2019-11-09 21:51 | NUR ---
Patient resting. VSS. Nighttime meds given. Denies current needs.
--- NOTE | 2019-11-10 04:11 | NUR ---
TASK RN: PACKET FAXED TO [facility].
--- NOTE | 2019-11-10 04:14 | NUR ---
pt resting in bed, pt a/o x4, pt denied any wants or needs at this time. pt room is si secured.
--- NOTE | 2019-11-10 06:01 | NUR ---
pt sleeping in er bed with sitter at pt foot board, pt room iv si secured pt has no c/o at the moment
--- NOTE | 2019-11-10 07:22 | NUR ---
REPORT RECEIVED FROM RAÚL JEWELL. PT SLEEPING ON GURNEY, CHEST RISE AND FALL OBSERVED.
--- NOTE | 2019-11-10 07:44 | NUR ---
PT AMBULATED TO THE BR W/ A STEADY GAIT. FSBS 163. PT COOPERATIVE AT THIS TIME. REPORTS NOT WANTING TO SEE A MALE PSYCHIATRIST.
--- NOTE | 2019-11-10 07:55 | NUR ---
MED HARRISON FROM PHARMACY.
--- NOTE | 2019-11-10 08:18 | NUR ---
BREAKFAST TRAY DELIVERED.
[2019-11-10] MEDS: BUPROPION SR 100 MG TABLET PO SCH ×2 (08:49→20:10)
--- NOTE | 2019-11-10 08:50 | NUR ---
PT MEDICATED PER EMAR. PT RESTING ON GURNEY. SITTER OUTSIDE OF ROOM, GARAGE DOORS DOWN.
--- NOTE | 2019-11-10 09:23 | NUR ---
PT RESTING ON GURNEY, CHEST RISE AND FALL OBSERVED. SITTER OUTSIDE ROOM, GARAGE DOORS DOWN.
--- NOTE | 2019-11-10 10:26 | NUR ---
PT RESTING ON HOSPITAL BED, CHEST RISE AND FALL OBSERVED. SITTER OUTSIDE ROOM, GARAGE DOORS DOWN.
--- NOTE | 2019-11-10 10:46 | NUR ---
COPY OF LEGAL SENT TO PARKER
--- NOTE | 2019-11-10 11:08 | NUR ---
Note erika in ED - 11/10/19 at 1112 by CHRISTA PT SPOKE W/ SISTER ON THE PHONE. MADE COMMENTS SUCH "YOU'RE IN ON IT TOO, PEOPLE ARE TRYING TO SHOOT ME, I JUST WANT YOU TO GET ME A PLANE TICKET AND COME PICK ME UP". PT BECAME INCREASINGLY AGITATED AND ASKED TO END CONVERSATION AND RETURN TO ROOM. PT THEN STATED TO THIS RN THAT HE DOES NOT WANT TO BE RELEASED BACK TO THE STREETS. WILL SUSPEND PHONE PRIVELIGES UNTIL PT EVALUATED BY PSYCH.
--- NOTE | 2019-11-10 11:10 | NUR ---
PT AMBULATED W/ A STEADY GAIT TO SHOWER ROOM. SITTER OUTSIDE SHOWER ROOM FOR SAFETY. PROVIDED NEW GOWN.
--- NOTE | 2019-11-10 11:18 | NUR ---
PT RETURNED TO ROOM. RESTING ON HOSPITAL BED, SITTER OUTSIDE, GARAGE DOORS DOWN.
--- NOTE | 2019-11-10 11:20 | NUR ---
ED SAFETY DIET TRAY ORDERED (DIABETIC).
--- NOTE | 2019-11-10 11:40 | NUR ---
RAJEEV SCHULTE AT BEDSIDE FOR EVAL.
--- NOTE | 2019-11-10 12:11 | NUR ---
SAFETY ED DIET TRAY DELIVERED. (DIABETIC)
--- NOTE | 2019-11-10 13:08 | NUR ---
PT RESTING ON HOSPITAL BED, SITTER OUTSIDE OF ROOM, GARAGE DOORS DOWN, NADN.
--- NOTE | 2019-11-10 13:43 | NUR ---
Aimee james in [facility] - 11/10/19 at 1346 by CHRISTA BREAK RN: PT CALMLY LAYING ON HOSPITAL BED WATCHING TV, NAD WITH EQUAL CHEST RISE/FALL, NO NEEDS AT THIS TIME, PT REMAINS IN SAFE ENVIRONMENT, SITTER IN VIEW.
--- NOTE | 2019-11-10 13:48 | NUR ---
(PREVIOUS NOTE CHARTED UNDER WRONG USER) BREAK RN: PT CALMLY LAYING ON HOSPITAL BED WATCHING TV, NAD WITH EQUAL CHEST RISE/FALL, NO NEEDS AT THIS TIME, PT REMAINS IN SAFE ENVIRONMENT, SITTER IN VIEW.
--- NOTE | 2019-11-10 15:14 | NUR ---
PT RESTING ON HOSPITAL BED W/ GARAGE DOORS DOWN AND SITTER AT BEDSIDE, JANNA.
--- NOTE | 2019-11-10 16:17 | NUR ---
PT RESTING ON HOSPITAL BED W/ GARAGE DOORS DOWN AND SITTER AT BEDSIDE, JANNA.
--- NOTE | 2019-11-10 16:43 | NUR ---
ED DIET TRAY ORDERED.
--- NOTE | 2019-11-10 17:14 | NUR ---
ED DIET TRAY DELIVERED.
--- NOTE | 2019-11-10 17:56 | NUR ---
PT RESTING ON HOSPITAL BED W/ GARAGE DOORS DOWN AND SITTER AT BEDSIDE, JANNA.
--- NOTE | 2019-11-10 18:51 | NUR ---
REPORT GIVEN TO JEANNETTE JEWELL. PT RESTING ON HOSPITAL BED W/ GARAGE DOORS DOWN AND SITTER AT BEDSIDE,
--- NOTE | 2019-11-10 19:02 | NUR ---
pt resting on gurney, room secured, provided pt with water per her request, pt states she continues to have thought of suicide and her plan is to hang herself, pt denies further needs at this time, sitter at doorway for continous monitoring
--- NOTE | 2019-11-10 20:11 | NUR ---
PT SITTING UP WATCHING TV, MEDICATED PER SEP, DENIES FURTHER NEEDS AT THIS TIME, SITTER AT DOORWAY FOR CONTINOUS MONITORING
[2019-11-10] MEDS ORDERED: TRAZODONE 50MG TABLET ONE (20:44)
[2019-11-10] MEDS: TRAZODONE 50MG TABLET PO PRN (20:45)
--- NOTE | 2019-11-10 20:45 | NUR ---
PT RESQUESTING MEDICATION TO HELP HER SLEEP, PT MEDICATED PER MAR
--- NOTE | 2019-11-10 21:13 | NUR ---
pt resting calmly, denies needs at this time, nad, respirations even and unlabored, sitter at doorway for continous monitoring
--- NOTE | 2019-11-10 22:11 | NUR ---
PT RESTING IN BED WATCHING TV, DENIES NEEDS AT THIS TIME, NAD, SITTER AT DOORWAY FOR CONTINOUS MONITORING
--- NOTE | 2019-11-10 23:12 | NUR ---
pt resting in bed watching tv, nad, sitter at doorway for continous monitoring
--- NOTE | 2019-11-11 00:10 | NUR ---
PT RESTING CALMLY, NAD, EQUAL CHEST RISE/FALL OBSERVED, SITTER AT DOORWAY FOR CONTINOUS MONITORING
--- NOTE | 2019-11-11 01:15 | NUR ---
PT RESTING CALMLY, NAD, EQUAL CHEST RISE/FALL OBSERVED, SITTER AT DOORWAY FOR CONTINOUS MONITORING
--- NOTE | 2019-11-11 02:07 | NUR ---
PT RESTING WITH EYES CLOSED, NADN, EQUAL CHEST RISE/FALL OBSERVED, SITTER IN DOORWAY FOR CONTINOUS MONITORING
--- NOTE | 2019-11-11 03:17 | NUR ---
pt resting in bed with eyes closed, nad, equal chest rise/fall observed, sitter at doorway for continous monitoring
--- NOTE | 2019-11-11 04:23 | NUR ---
report of pt from rn Aidee and assuming care of pt at this time.
--- NOTE | 2019-11-11 05:15 | NUR ---
PT ASLEEP IN GURNEY WITH SITTER OUTSIDE OF THE ROOM FOR DIRECT OBSERVATION OF PT. EQUAL BILATERAL RISE AND FALL OF CHEST NOTED.
--- NOTE | 2019-11-11 06:34 | NUR ---
PT ASLEEP IN GURNEY WITH SITTER OUTSIDE OF THE ROOM FOR DIRECT OBSERVATION OF PT. EQUAL BILATERAL RISE AND FALL OF CHEST NOTED.
--- NOTE | 2019-11-11 07:05 | NUR ---
RECEIVED REPORT FROM FANTA BAXTER. THIS RN TO ASSUME CARE. PT IN LAYING IN BED, RESPIRATIONS EVEN AND UNLABORED, NO SIGNS OF DISTRESS. PT AWAKE AND TALKED WITH RN BRIEFLY WHEN INTRODUCED. LIGHTS OFF TO PROMOTE REST, NO BELONGINGS IN THE ROOM, PT IN VIEW OF THE SITTER.
--- NOTE | 2019-11-11 07:19 | NUR ---
REPORT RECEIVED FROM ASTON JEWELL.
--- NOTE | 2019-11-11 08:24 | NUR ---
meal tray provided at this time. pt's aox4. resps even and unlabored.
[2019-11-11 08:28] VITALS: BP 124/86
--- NOTE | 2019-11-11 08:44 | NUR ---
medication ordered from pharmacy at this time.
[2019-11-11] MEDS: BUPROPION SR 100 MG TABLET PO SCH (09:00)
--- NOTE | 2019-11-11 09:29 | NUR ---
pt medicated per emar. pt tolerated well. pt's aox4. resps even and unlabored. sitter monitoring from hallway fore safety. room remains secure.
--- NOTE | 2019-11-11 10:14 | NUR ---
SPOKE WITH BRIANNA AT [facility]. HE WAS INQUIRING IF LEGAL HAS BEEN EXTENDED. TO CALL FRANCIE NO COPY IS ON CHART. WILL CALL BRIANNA BACK WITH INFORMATION.
--- NOTE | 2019-11-11 10:21 | NUR ---
pt resting in hospital bed. resps even and unlabored. sitter monitoring from hallway for safety. room remains secure.
--- NOTE | 2019-11-11 11:02 | NUR ---
meal tray ordered at this time.
--- NOTE | 2019-11-11 11:10 | NUR ---
BRIANNA ACCEPTED PT @[facility]. MARILYN TO GIVE REPORT.
--- NOTE | 2019-11-11 11:19 | NUR ---
REPORT GIVEN TO BRIANNA JEWELL AT [facility].
--- NOTE | 2019-11-11 11:51 | NUR ---
BREAK RN NOTE: PT RESTING ON HOSPITAL BED. RESPS EVEN AND UNLABORED. SITTER MONITORING FROM HALLWAY FOR SAFETY. ROOM REMAINS SECURE.
--- NOTE | 2019-11-11 11:59 | NUR ---
REMSA AT 1330
--- NOTE | 2019-11-11 12:04 | NUR ---
primary FANTA Mendez returned from meal break, report given back to FANTA Mendez.
--- NOTE | 2019-11-11 12:32 | NUR ---
pt resting in hospital bed. resps even and unlabored. sitter monitoring from hallway for safety. room remains secure.
--- NOTE | 2019-11-11 12:49 | NUR ---
MEAL TRAY PROVIDED AT THIS TIME.
--- NOTE | 2019-11-11 13:50 | NUR ---
pt amb to exit with [facility] with steady gait. all belongings(2bags and one backpack) given to [facility].
== END 2019-11-11 13:52 ==
LOC: ED 16:05
DX: R45.851 Suicidal ideations (principal); E11.9 Type 2 diabetes mellitus without complications; I10 Essential (primary) hypertension; F41.9 Anxiety disorder, unspecified; Z59.0 Homelessness
CPT/HCPCS: 36415; 80053; 80307; 81003; 82962; 84703; 85025; 99285

== ENCOUNTER 2020-03-14 15:23 | Emergency (ER) | payer MEDICAID ==
[~2020-03-14] VITALS: Ht 160 cm; Wt 74.0 kg
[2020-03-14 15:40] LABS: MEAN CORPUSCULAR HEMOGLOBIN 30.7 pg (27.0-34.8); MEAN CORPUSCULAR HGB CONC 33.5 g/dL (32.4-35.8); MEAN CORPUSCULAR VOLUME 91.6 fL (80-100); MEAN PLATELET VOLUME 8.4 fL (7.4-10.4); PLATELET COUNT 366 x10^3/uL (130-400); RED BLOOD COUNT 4.59 x10^6/uL (3.82-5.3); RED CELL DISTRIBUTION WIDTH 14.4 % (9.6-15.2)
--- NOTE | 2020-03-14 15:50 | NUR ---
PT COMES IN TODAY WITH SI. STATED SHE AMAd FROM [facility] TODAY. PT DIDN'T GIVE A CLEAR REASON TO WHY SHE LEFT [facility]. STATED SHE WAS THERE ORIGINALLY TO GET HELP WITH HOUSING AND GET A DOCTOR. PT WAS ADMITTED TO [facility] AFTER BEING DCd FROM [facility] SHE HUNG HERSELF FROM [place] A FEW MONTHS AGO AND WAS FOUND, CUT DOWN AND TAKEN TO [place]. PT STATED AFTER LEAVING [facility] TODAY, SHE WENT TO BUY A FEW TALL CANS OF BEER, THEN [place]. PT STATED SHE STARTED FEELING DEPRESSED ABOUT HER CURRENT SITUATION OF BEING HOMELESS, FEELING UNCERTAIN ABOUT HER LIFE AND GENERALLY LOST SHE HAS NO WHERE TO GO. PT COOPERATIVE WITH REMOVAL OF CLOTHING. ALL BELONGINGS BAGS TAGGED AND PLACED IN BIN IN CLOTHING CLOSET. PT ABLE TO PROVIDE URINE SAMPLE WHICH WAS WALKED TO LAB. SITTER AT DOOR FOR OBS. WILL CONITNUE TO MONITOR.
[2020-03-14 15:53] LABS: ALBUMIN 3.4 g/dL (3.4-5.0); ANION GAP 9 mmol/L (5-15); CALCIUM 8.8 mg/dL (8.5-10.1); CHLORIDE 105 mmol/L (98-107); CREATININE 0.62 mg/dL (0.55-1.02); SALICYLATE LEVEL 1.9 mg/dL (2.8-20.0)
[2020-03-14 15:55] LABS: BASOPHILS # (AUTO) 0.07 x10^3/uL (0-0.1); BASOPHILS % (AUTO) 1 % (0-1); EOSINOPHILS # (AUTO) 0.25 x10^3/uL (0-0.4); EOSINOPHILS % (AUTO) 2 % (1-7); LYMPHOCYTES # (AUTO) 5.91 x10^3/uL (1-3.4); LYMPHOCYTES % (AUTO) 43 % (22-44); MD SCAN; MONOCYTES # (AUTO) 0.68 x10^3/uL (0.2-0.8); MONOCYTES % (AUTO) 5 % (2-9); NEUTROPHILS # (AUTO) 6.94 x10^3/uL (1.8-6.8); NEUTROPHILS % (AUTO) 50 % (42-75)
--- NOTE | 2020-03-14 16:31 | NUR ---
PT PLACED ON HOLD. PT RESTING CALMLY IN BED. PT GIVEN SOCK FOR FEET. SITTER AT DOOR FOR OBS.
[2020-03-14 17:00] LABS: AMPHETAMINE SCREEN, URINE Negative (Negative); BARBITURATE SCREEN, URINE Negative (Negative); BENZODIAZEPINE SCREEN, URINE Negative (Negative); CANNABINOID SCREEN, URINE Negative (Negative); COCAINE SCREEN, URINE Negative (Negative); METHADONE SCREEN, URINE Negative (Negative); OPIATE SCREEN, URINE Negative (Negative)
--- NOTE | 2020-03-14 18:27 | NUR ---
PT GIVEN MEAL TRAY. PT AT A LITTLE. PT NOW RESTING IN BED, NO STATED NEEDS. WILL CONTINUE TO MONITOR. SITTER AT DOOR.
--- NOTE | 2020-03-14 18:42 | NUR ---
PT C/O PAIN IN RIGHT LEG AND ASKING IF HER NIGHT MEDS CAN BE ORDERED. ERP AWARE, ORDERS TO BE PLACED. PT CONTINUES TO REST IN BED CALMLY AT THIS TIME. SITTER AT DOOR.
--- NOTE | 2020-03-14 19:00 | NUR ---
THROUGHPUT RN: PARKER, DIVISION SUPERVISOR, SPOKE WITH [facility]. PER PAKRER, [facility] WILL ASSESS PT'S CHART AND DECIDE ON ACCEPTANCE. AWAITING TO HEAR FROM [facility].
[2020-03-14 19:06] VITALS: BP 114/70
--- NOTE | 2020-03-14 19:17 | NUR ---
tp: packet faxed to all [facility] facilities
--- NOTE | 2020-03-14 20:22 | NUR ---
Dr. Peraza accepted this referral for [facility].
--- NOTE | 2020-03-14 20:25 | NUR ---
THROUGHPUT RN: PT ACCEPTED BY DR FLORIAN. PT TO BE TRANSFERRED TO [facility] AT 2130 TONIGHT.
[2020-03-15] MEDS ORDERED: METF500T17 PO ×2 (01:11→12:33)
[2020-03-15] MEDS ORDERED: DIVA125C3 PO (01:11)
[2020-03-15] MEDS ORDERED: HYDR-826 PO (01:11)
[2020-03-15] MEDS ORDERED: FLUO20TA25 PO (01:11)
[2020-03-15] MEDS ORDERED: FLUO10CA14 PO (01:11)
[2020-03-15] MEDS ORDERED: TRAZ-175 PO (01:11)
[2020-03-15] MEDS ORDERED: LEVO50TA5 PO (01:11)
[2020-03-15] MEDS ORDERED: METO25TA4 PO (01:11)
[2020-03-15] MEDS ORDERED: DIVA125C2 PO ×2 (12:32)
== END 2020-03-14 21:45 | disposition other institution (70) ==
LOC: ED 18:49
DX: R45.851 Suicidal ideations (principal); F32.9 Major depressive disorder, single episode, unspecified; F10.129 Alcohol abuse with intoxication, unspecified; E11.65 Type 2 diabetes mellitus with hyperglycemia; I10 Essential (primary) hypertension; E03.9 Hypothyroidism, unspecified; Y90.9 Presence of alcohol in blood, level not specified
CPT/HCPCS: 36415; 80048; 80307; 82040; 84703; 85025; 99284

== ENCOUNTER 2020-03-14 20:33 | Inpatient (IN) | payer MEDICAID ==
[~2020-03-14] VITALS: Ht 160 cm; Wt 73.0 kg
[2020-03-14] MEDS ORDERED: ONDANSETRON ODT 4 MG PO PRN (21:00)
[2020-03-14] MEDS ORDERED: BISACODYL 10 MG SUPP PR PRN (21:00)
[2020-03-14] MEDS ORDERED: POLYETHYLENE GLYCOL 17 GM PACKET PO PRN (21:00)
[2020-03-14] MEDS ORDERED: DOCUSATE 100 MG CAPSULE PO PRN (21:00)
[2020-03-14] MEDS ORDERED: ACETAMINOPHEN 325 MG TABLET PO PRN (21:00)
[2020-03-14 22:03] LABS: FREE T4 (FREE THYROXINE) 0.89 ng/dL (0.76-1.46)
[2020-03-14 23:16] VITALS: BP 109/74
[2020-03-15] MEDS ORDERED: FLUO20TA25 PO (01:11)
[2020-03-15] MEDS ORDERED: FLUO10CA14 PO (01:11)
[2020-03-15] MEDS ORDERED: TRAZ-175 PO (01:11)
[2020-03-15] MEDS ORDERED: DIVA125C3 PO (01:11)
[2020-03-15] MEDS ORDERED: HYDR-826 PO (01:11)
[2020-03-15] MEDS ORDERED: METO25TA4 PO (01:11)
[2020-03-15] MEDS ORDERED: LEVO50TA5 PO (01:11)
[2020-03-15] MEDS ORDERED: METF500T17 PO ×2 (01:11→12:33)
[2020-03-15 06:26] LABS: CHOL/HDL RATIO 8.7
[2020-03-15 06:27] LABS: LDL/HDL RATIO 6.1 (0.5-3.0)
[2020-03-15] MEDS ORDERED: DIVA125C2 PO ×2 (12:32)
[2020-03-15] MEDS: FLUOXETINE HCL 20 MG CAPSULE PO SCH (13:00)
[2020-03-15] MEDS: metFORMIN 500 MG TABLET PO SCH (17:30)
[2020-03-15 18:50] LABS: MICROSCOPIC NOT IND
[2020-03-15] MEDS: DIVALPROEX 125 MG CAP.SPRINK PO SCH (20:23)
[2020-03-16 06:23] LABS: BASOPHILS # (AUTO) 0.07 x10^3/uL (0-0.1); BASOPHILS % (AUTO) 1 % (0-1); EOSINOPHILS # (AUTO) 0.37 x10^3/uL (0-0.4); EOSINOPHILS % (AUTO) 3 % (1-7); LYMPHOCYTES # (AUTO) 4.29 x10^3/uL (1-3.4); LYMPHOCYTES % (AUTO) 38 % (22-44); MD NO; MEAN CORPUSCULAR HEMOGLOBIN 30.1 pg (27.0-34.8); MEAN CORPUSCULAR HGB CONC 32.7 g/dL (32.4-35.8); MEAN CORPUSCULAR VOLUME 92.1 fL (80-100); MEAN PLATELET VOLUME 8.1 fL (7.4-10.4); MONOCYTES # (AUTO) 0.67 x10^3/uL (0.2-0.8); MONOCYTES % (AUTO) 6 % (2-9); NEUTROPHILS # (AUTO) 5.86 x10^3/uL (1.8-6.8); NEUTROPHILS % (AUTO) 52 % (42-75); PLATELET COUNT 348 x10^3/uL (130-400); RED CELL DISTRIBUTION WIDTH 14.4 % (9.6-15.2)
[2020-03-16 07:00] VITALS: BP 131/85
[2020-03-16] MEDS: FLUOXETINE HCL 20 MG CAPSULE PO SCH (08:00)
[2020-03-16] MEDS: metFORMIN 500 MG TABLET PO SCH ×2 (08:01→16:19)
[2020-03-16] MEDS: DIVALPROEX 125 MG CAP.SPRINK PO SCH ×2 (08:01→20:08)
[2020-03-17] MEDS: metFORMIN 500 MG TABLET PO SCH ×2 (08:00→16:16)
[2020-03-17] MEDS: FLUOXETINE HCL 20 MG CAPSULE PO SCH (08:00)
[2020-03-17] MEDS: DIVALPROEX 125 MG CAP.SPRINK PO SCH ×2 (08:00→20:06)
[2020-03-17 19:30] VITALS: BP 121/86
[2020-03-18] MEDS: metFORMIN 500 MG TABLET PO SCH (07:52)
[2020-03-18] MEDS: DIVALPROEX 125 MG CAP.SPRINK PO SCH (07:52)
[2020-03-18] MEDS: FLUOXETINE HCL 20 MG CAPSULE PO SCH (07:52)
== END 2020-03-18 10:20 | disposition home or self-care (01) | DRG 885 ==
LOC: 3E 21:55
PROVIDERS: ADMIT Psychiatry & Neurology Psychosomatic Medicine; ATTEND Psychiatry & Neurology Psychosomatic Medicine
DX: F31.30 Bipolar disorder, current episode depressed, mild or moderate severity, unspecified (principal); R45.851 Suicidal ideations; D72.829 Elevated white blood cell count, unspecified; E03.9 Hypothyroidism, unspecified; E11.65 Type 2 diabetes mellitus with hyperglycemia; E78.5 Hyperlipidemia, unspecified; F10.20 Alcohol dependence, uncomplicated; F17.200 Nicotine dependence, unspecified, uncomplicated; F43.10 Post-traumatic stress disorder, unspecified; G47.00 Insomnia, unspecified; I10 Essential (primary) hypertension; Z79.899 Other long term (current) drug therapy; Z71.6 Tobacco abuse counseling
CPT/HCPCS: 36415; 71045; 80061; 81003; 82607; 84439; 84443; 85025; 93005